=== PATIENT | female | born 1980 | race Caucasian/White ===

== ENCOUNTER 2016-12-26 19:07 | Emergency (ER) | payer BC ==
[~2016-12-26] VITALS: Ht 157.5 cm; Wt 77.1 kg
[2016-12-26 19:48] VITALS: BP 143/89
--- NOTE | 2016-12-26 20:22 | NUR ---
PATIENT LEFT WITHOUT BEING SEEN BY DR. DRISCOLL. NO FURTHER CARE PROVIDED FOR PATIENT.
== END 2016-12-26 20:22 | disposition left against medical advice (07) ==
LOC: MED 19:07
DX: M79.662 Pain in left lower leg (principal); Z53.21 Procedure and treatment not carried out due to patient leaving prior to being seen by health care provider

== ENCOUNTER 2016-12-26 23:08 | Emergency (ER) | payer BC ==
[~2016-12-26] VITALS: Ht 157.5 cm; Wt 77.1 kg
[2016-12-26 23:37] VITALS: BP 153/82
--- NOTE | 2016-12-27 01:04 | NUR ---
TO ER BED 6
--- NOTE | 2016-12-27 01:13 | NUR ---
PATIENT PRESENTS TO ED WITH LEFT LOWER LEG PAIN X30MIN PRIOR TO ARRIVAL . PT STATES SHE WAS AT [employer] WHEN SHE FELT A POP AND PAIN . DENIES N/V/D; SKIN IS PINK/WARM/DRY; AAOX4 WITH EVEN AND STEADY GAIT; LUNGS CLEAR BL; HR EVEN AND REGULAR; PT DENIES ANY FEVER, CP, SOB, OR COUGH AT THIS TIME; PATIENT STATES PAIN OF 10/10 AT THIS TIME; VSS; PATIENT POSITIONED FOR COMFORT; HOB ELEVATED; BEDRAILS UP X2; BED DOWN. ER MD MADE AWARE OF PT STATUS. AT BEDSIDE
[2016-12-27] MEDS ORDERED: ACETAMINOPHEN/CODEINE 300/30MG 1 TAB PO ONE (01:45)
[2016-12-27] MEDS ORDERED: KETOROLAC 30 MG/ML VIAL IM ONE (01:45)
[2016-12-27 02:33] VITALS: BP 146/89
--- NOTE | 2016-12-27 02:33 | NUR ---
Patient discharged with v/s stable. Written and verbal after care instructions given and explained. Patient alert, oriented and verbalized understanding of instructions. Ambulatory with steady gait USING CRUTCHES. All questions addressed prior to discharge. ID band removed. Patient advised to follow up with PMD. Rx of NAPROSYN AND TYLENOL WITH CODEINE given. Patient educated on indication of medication including possible reaction and side effects. Opportunity to ask questions provided and answered. PT STATES WILL BE DRIVING HER HOME AT THIS TIME
== END 2016-12-27 02:33 | disposition home or self-care (01) ==
LOC: MED 23:08
DX: S86.112A Strain of other muscle(s) and tendon(s) of posterior muscle group at lower leg level, left leg, initial encounter (principal); Y93.41 Activity, dancing; Y93.89 Activity, other specified; Y92.89 Other specified places as the place of occurrence of the external cause; Y99.8 Other external cause status
CPT/HCPCS: 29505; 81002; 81025; 96372; 99283; J1885

== ENCOUNTER 2018-03-29 21:10 | Emergency (ER) | payer BC ==
[~2018-03-29] VITALS: Ht 157.5 cm; Wt 77.1 kg
[2018-03-29 21:30] VITALS: BP 149/90
--- NOTE | 2018-03-29 21:33 | NUR ---
TO LOBBY A/W BED, ALEXX RICCI, ENRRIQUE NOTED
--- NOTE | 2018-03-29 23:11 | NUR ---
PT AMBULATORY TO BED 3 W/ STEADY GAIT.
--- NOTE | 2018-03-29 23:15 | NUR ---
PATIENT IS A 37 Y/O FEMALE WHO PRESENTS TO THE ED S/P FALL. PT STATES THAT SHE WAS AT THE CAR [employer] WHEN SHE SLIPPED AND FELL ON HER BACK. PT REPORTS 9/10 ACHING BODY PAIN THAT DOES NOT RADIATE. PT DENIES CP, SOB, N/V/D, REPORTS DIZZINESS. PT AAOX4, RR EVEN/UNLABORED, AMBULATED WITH STEAGY GAIT, BED IN LOWEST POSITION. ER MD DR. KHAN NOTIFIED. WILL CONTINUE TO MONITOR.
[2018-03-29] MEDS ORDERED: KETOROLAC 60 MG/2 ML VIAL IM ONE (23:25)
[2018-03-30 01:15] VITALS: BP 128/84
--- NOTE | 2018-03-30 01:15 | NUR ---
Patient discharged with v/s stable. Written and verbal after care instructions given and explained. Patient alert, oriented and verbalized understanding of instructions. Ambulatory with steady gait. All questions addressed prior to discharge. ID band removed. Patient advised to follow up with PMD. Rx of CIPRO AND MOTRIN given. Patient educated on indication of medication including possible reaction and side effects. Opportunity to ask questions provided and answered.
== END 2018-03-30 01:15 | disposition home or self-care (01) ==
LOC: MED 21:10
DX: N39.0 Urinary tract infection, site not specified (principal); M79.1 Myalgia
CPT/HCPCS: 81002; 81025; 96372; 99283; J1885

== ENCOUNTER 2019-01-13 20:20 | Emergency (ER) | payer BC ==
[~2019-01-13] VITALS: Ht 160 cm; Wt 74.8 kg
[2019-01-13 20:27] VITALS: BP 140/90
--- NOTE | 2019-01-13 20:27 | NUR ---
PT PRESENTS TO ED WITH RIGHT FLANK PAIN X3 DAYS. STATES SOME NAUSEA WITHOUT VOMITING. TREATED FOR UTI X2 WEEKS AGO. NO BURNING WITH URINATION OR OTHER URINARY CHANGES. 9/10 DEEP CONSTANT RIGHT FLANK PAIN. NO PAST MEDICAL HX. A&OX4. AFEBRILE. VSS. POSTIOINED IN BED FOR COMFORT. AT BEDSIDE. ER MD AWARE. CONTINUE TO MONITOR.
--- NOTE | 2019-01-13 20:27 | NUR ---
TO BED # 02 AMBULATORY, REPORT GIVEN TO JAMEY DE LEON
[2019-01-13] MEDS ORDERED: HYDROcodone/APAP 5/325 MG 1 TAB TAB PO ONE (21:05)
[2019-01-13] MEDS ORDERED: KETOROLAC 30 MG/ML VIAL IM ONE (21:05)
[2019-01-13 21:37] LABS: APPEARANCE,URINE CLEAR (CLEAR); BILIRUBIN,URINE NEGATIVE (NEGATIVE); BLOOD, URINE 2+ (NEGATIVE); COLOR,URINE YELLOW (YELLOW); LEUKOCYTE ESTERASE ,URINE NEGATIVE (NEGATIVE); NITRITE, URINE NEGATIVE (NEGATIVE); UGLUCOSE NEGATIVE (NEGATIVE)
[2019-01-13 21:45] LABS: RBC,URINE 11-20 (MOD) /HPF (0-5); WBC,URINE 0-5 /HPF (0-5)
[2019-01-13 23:50] VITALS: BP 137/85
--- NOTE | 2019-01-13 23:50 | NUR ---
Patient discharged with v/s stable. Written and verbal after care instructions given and explained. Patient alert, oriented and verbalized understanding of instructions. Ambulatory with steady gait. All questions addressed prior to discharge. ID band removed. Patient advised to follow up with PMD. Rx of MIRALAX POWDER given. Patient educated on indication of medication including possible reaction and side effects. Opportunity to ask questions provided and answered.
== END 2019-01-13 23:50 | disposition home or self-care (01) ==
LOC: MED 20:20
DX: K59.00 Constipation, unspecified (principal); Z90.710 Acquired absence of both cervix and uterus
CPT/HCPCS: 74176; 81001; 81025; 96372; 99284; J1885

== ENCOUNTER 2023-05-11 14:25 | Emergency (ER) | payer BC, OTHER ==
[~2023-05-11] VITALS: Ht 160 cm; Wt 77.1 kg
[2023-05-11 14:39] VITALS: BP 166/112; PULSE 100; RESP 20; TEMP 97.8; O2SAT 98
--- NOTE | 2023-05-11 14:48 | NUR ---
C/O NECK PAIN , C- COLLAR APPLIED IN TRIAGE
[2023-05-11] MEDS ORDERED: diazePAM 5 MG TAB PO ONE (16:25)
[2023-05-11] MEDS ORDERED: KETOROLAC 30 MG/ML VIAL IM ONE (16:25)
--- NOTE | 2023-05-11 17:11 | NUR ---
Pt returned from radiology department back to room 9.
--- NOTE | 2023-05-11 17:46 | NUR ---
Pt in sitting up in bed. No distress noted. at BS. Currently awaiting to be updated on x-ray and CT findings.
[2023-05-11] MEDS ORDERED: NAPR-54 PO (17:54)
[2023-05-11] MEDS ORDERED: CYCL-711 PO (17:54)
[2023-05-11 19:40] VITALS: BP 128/87; PULSE 82; RESP 18; TEMP 99.2; O2SAT 97
--- NOTE | 2023-05-11 19:40 | NUR ---
Patient discharged with v/s stable. Written and verbal after care instructions given and explained. Patient alert, oriented and verbalized understanding of instructions. Ambulatory with steady gait. All questions addressed prior to discharge. ID band removed. Patient advised to follow up with PMD. Rx of FLEXERIL, NAPROSYN given. Patient educated on indication of medication including possible reaction and side effects. Opportunity to ask questions provided and answered.
== END 2023-05-11 19:40 | disposition home or self-care (01) ==
LOC: MED 14:25
DX: S16.1XXA Strain of muscle, fascia and tendon at neck level, initial encounter (principal); S29.012A Strain of muscle and tendon of back wall of thorax, initial encounter; S13.4XXA Sprain of ligaments of cervical spine, initial encounter; Z98.890 Other specified postprocedural states; Z79.899 Other long term (current) drug therapy; Z79.1 Long term (current) use of non-steroidal anti-inflammatories (NSAID); V49.49XA Driver injured in collision with other motor vehicles in traffic accident, initial encounter; Y93.89 Activity, other specified; Y92.410 Unspecified street and highway as the place of occurrence of the external cause; Y99.8 Other external cause status
CPT/HCPCS: 70450; 71045; 72125; 96372; 99285; J1885

== ENCOUNTER 2024-03-21 15:46 | Emergency (ER) | payer BC ==
[~2024-03-21] VITALS: Ht 160 cm; Wt 83.9 kg
[~2024-03-21 15:46] MED LIST: CYCL-711 PO; NAPR-337 PO
[2024-03-21 16:13] VITALS: BP 154/97; PULSE 96; RESP 19; TEMP 97.3; O2SAT 99
[2024-03-21] MEDS: KETOROLAC 30 MG/ML VIAL IM ONE (16:47)
[2024-03-21] MEDS: LIDOCAINE 5% 1 EA PATCH TP ONE (16:48)
[2024-03-21] MEDS ORDERED: LID5T TP (17:08)
[2024-03-21] MEDS ORDERED: CYCL-711 PO (17:08)
[2024-03-21] MEDS ORDERED: NAPR-337 PO (17:08)
[2024-03-21 17:30] VITALS: BP 145/92; PULSE 88; RESP 16; TEMP 98; O2SAT 99
== END 2024-03-21 17:30 | disposition home or self-care (01) ==
LOC: MED 15:46
DX: M54.2 Cervicalgia (principal); V49.88XA Car occupant (driver) (passenger) injured in other specified transport accidents, initial encounter; Y93.89 Activity, other specified; Y92.89 Other specified places as the place of occurrence of the external cause; Y99.8 Other external cause status
CPT/HCPCS: 81025; 96372; 99283; J1885